=== PATIENT | female | born 1995 | race Caucasian/White ===

== ENCOUNTER → 2021-07-21 14:50 | Observation (INO) | END | disposition home or self-care (01) | LOC: 1NENULAB | PROVIDERS: ADMIT Advanced Practice Midwife; ATTEND Advanced Practice Midwife ==

== ENCOUNTER 2021-08-12 14:53 | Inpatient (IN) ==
[2021-08-12 05:16] LABS: Basophils # 0.1 K/mcL (0.0-0.2); Basophils % 0.4 %; Eosinophils # 0.2 K/mcL (0.0-0.6); Eosinophils % 1.3 %; Hematocrit 38.7 % (35.3-44.9); Hemoglobin 13.1 g/dL (11.5-15.4); Immature Granulocytes % 0.6 % (0-4); Lymphocytes # 3.2 K/mcL (0.6-4.6); Lymphocytes % 27.8 %; Mean Corpuscular HGB Conc 33.9 g/dL (31.6-35.5); Mean Corpuscular Volume 94.4 fL (83.0-100.0); Mean Platelet Volume 9.3 fL (9.4-12.4); Monocytes % 8.8 %; Neutrophils # 7.1 K/mcL (1.6-8.9); Platelet Count 320 K/mcL (140-400); Red Cell Distribution Width 13.1 % (11.5-14.5); Segmented Neutrophils % 61.1 %; White Blood Count 11.5 K/mcL (4.3-11.1)
[2021-08-12 05:24] LABS: Amphetamine Screen,Urine Negative ng/mL (Cutoff=1000); Barbiturate Screen,Urine Negative ng/mL (Cutoff=200); Benzodiazepines Screen,Urine Negative ng/mL (Cutoff=200); Cannabinoid Screen,Urine Negative ng/mL (Cutoff = 50); Cocaine Screen,Urine Negative ng/mL (Cutoff= 300); Opiate Screen,Urine Negative ng/mL (Cutoff=300); Phencyclidine Screen,Urine Negative ng/mL (Cutoff=25)
[2021-08-12 05:34] LABS: Influenza A PCR Negative (Negative); Influenza B PCR Negative (Negative); Resp. Syncytial Virus PCR Negative (Negative)
[2021-08-12 05:39] LABS: SARS-CoV-2 by PCR (In House) Negative (Negative)
[~2021-08-12 14:53] MED LIST: *HR* FentaNYL (PF) 100 MCG/2 ML VIAL EP ONE; *HR* FentaNYL (PF) 100 MCG/2 ML VIAL ONE; Azithromycin 500 MG in 0.9 % Sodium Chloride 250 ML IVPB PRN; EPHEDrine 50 MG/ML VIAL IVP PRN; Epidural Premix (fent/bupiv) 110 ML EP SCH; Famotidine 20 MG/2 ML VIAL IVP PRN; Metoclopramide 10 MG/2 ML VIAL IVP PRN; Naloxone 0.4 MG/ML INJ IVP PRN; Ondansetron 4 MG/2 ML VIAL IVP PRN; Oxytocin 30 UNIT/503 ML BAG IVC SCH; Ringers Solution, Lactated 1,000 ML IVC SCH; Ringers Solution, Lactated 1,000 ML ONE; Ropivacaine/PF 0.2% 20 ML VIAL EP ONE; Ropivacaine/PF 0.2% 20 ML VIAL ONE
[2021-08-12] MEDS ORDERED: 0.9 % Sodium Chloride 500 ML IVC SCH (17:30)
[2021-08-12] MEDS ORDERED: Lidocaine -MPF 1% 5 ML AMPUL ONE (20:51)
[2021-08-12] MEDS ORDERED: Ondansetron ODT 4 MG TAB.RAPDIS SL PRN (22:55)
[2021-08-12] MEDS ORDERED: Benzocaine/Menthol 56 GM AEROSOL SPRAY TP PRN (22:55)
[2021-08-12] MEDS ORDERED: Rho Immune Globulin 1,500 UNIT SYRINGE IM PRN (22:55)
[2021-08-12] MEDS ORDERED: Oxytocin 30 UNIT/503 ML BAG IVC SCH (22:55)
[2021-08-12] MEDS: Ibuprofen 600 MG TABLET PO SCH (23:05)
[2021-08-12] MEDS: Acetaminophen 325 MG TABLET PO SCH (23:05)
[2021-08-13] MEDS: Ibuprofen 600 MG TABLET PO SCH ×3 (03:54→17:13)
[2021-08-13] MEDS: Acetaminophen 325 MG TABLET PO SCH ×2 (06:58→15:13)
[2021-08-13] MEDS ORDERED: Prenatal Vit/FA 1 EACH TABLET PO SCH (09:00)
[2021-08-13 19:25] VITALS: BP 104/70; PULSE 90; TEMP 98.9; O2SAT 97
== END 2021-08-13 23:10 | disposition home or self-care (01) | DRG 807 ==
LOC: 1NENULAB → 1NENUOBS 22:58
PROVIDERS: ADMIT Registered Nurse; ATTEND Registered Nurse